=== PATIENT | male | born 1970 | race Caucasian/White ===

== ENCOUNTER 2016-10-07 07:59 | Day surgery (SDC) | payer OTHER ==
[~2016-10-07] VITALS: Ht 180.3 cm; Wt 100.9 kg
[~2016-10-07 07:59] MED LIST: CeFAZolin Inj 2 GM in IV Premix 1 EACH IV SCH
[2016-10-07] MEDS ORDERED: fentaNYL-PF 50 mCg/mL 2 mL Inj ONE (08:00)
[2016-10-07] MEDS ORDERED: Dexamethasone 4 mg/mL Inj ONE (08:00)
[2016-10-07] MEDS ORDERED: MetoCLOpramide 5 mg/mL 2 mL Inj ONE (08:00)
[2016-10-07] MEDS ORDERED: Ondansetron 2 mg/mL 2 mL Inj ONE (08:00)
[2016-10-07] MEDS ORDERED: Propofol 10,000 mCg/mL 20 mL Inj ONE (08:00)
[2016-10-07] MEDS: Lactated Ringer's 1,000 ML IV SCH ×2 (08:06→09:49)
[2016-10-07] MEDS ORDERED: IBUP200C PO (08:13)
[2016-10-07 08:32] VITALS: BP 115/59; PULSE 54; RESP 18; O2SAT 98
[2016-10-07] MEDS ORDERED: Bupivacaine-MPF 0.5% W/EPI 30 mL Inj INFILTRATE ONE (10:17)
[2016-10-07] MEDS ORDERED: Lactated Ringer's 1,000 ML IV SCH (10:19)
[2016-10-07] MEDS ORDERED: Lactated Ringer's 500 ML IV PRN (10:19)
[2016-10-07] MEDS ORDERED: Phenylephrine 10,000 mCg/mL Inj IVPUSH PRN (10:20)
[2016-10-07] MEDS ORDERED: Ondansetron 2 mg/mL 2 mL Inj IVPUSH PRN (10:20)
[2016-10-07] MEDS ORDERED: HYDROmorphone 1 mg/mL Inj IVPUSH PRN (10:20)
[2016-10-07] MEDS ORDERED: fentaNYL-PF 50 mCg/mL 2 mL Inj IVPUSH PRN (10:20)
[2016-10-07] MEDS ORDERED: EPHEDrine Sulfate 50 mg/mL Inj IVPUSH PRN (10:20)
[2016-10-07] MEDS ORDERED: Dexamethasone 4 mg/mL Inj IVPUSH PRN (10:20)
[2016-10-07] MEDS ORDERED: MetoCLOpramide 5 mg/mL 2 mL Inj IVPUSH PRN (10:20)
--- NOTE | 2016-10-07 10:38 | PCM.DISURG ---
Surgical Discharge Instruction Date of Service Oct 07, 2016 Dates of Hospitalization Date of Hospital Admission Providers Admitting Physician: Primary Care Physician: Gavino Fried MD Attending Physician: Gaudencio Owen MD Discharge Diagnosis Discharge Diagnosis Multiple right arm lipomas Diet Discharge Diet: No restrictions Activity Discharge Activity-General: No restrictions Dressing and Incisional Care Dressing Instructions: Dermabond will peel off gradually Hygiene: May shower Follow Up Plan Follow Up Plan With Dr. Owen in 3 weeks Call your provider for: Fever (over 101.5), Discharge @ incision, pus discharge Gaudencio Owen MD Oct 07, 2016 10:38
[2016-10-07] MEDS ORDERED: oxyCODONE-Acetamin 5-325 mg Tablet PO PRN (10:40)
--- NOTE | 2016-10-07 10:44 | PCM.SURGOP ---
Surgical Operative Report Date of Service: Oct 07, 2016 Pre Operative Diagnosis Multiple right arm lipomas Post Operative Diagnosis Same Procedure: Excision of right arm lipomas 3, 1.1-2.0 cm Surgeon and [employer] Supervisor: Surgeon: Gaudencio Owen MD Assistants: Romana Helton PA-C; David Celestin MS3 Indication for Procedure 46-year-old man who has a history of multiple prior soft tissue lipomas. Some of them have been excised in the operating room, and some of them have been excised in the office. Several of them have been stable in size on his upper right arm, but one was increasing in size, and becoming more tender. He wished to have them excised. After discussion of risks and benefits, he agreed to proceed with excision. Findings: All 3 soft tissue masses were grossly consistent with lipomas. The most posterior lesion measured 1.5 x 1.3 x 0.7 cm. The middle lesion measured 1.5 x 1.2 x 0.5 cm. The most anterior lesion measured 1.3 x 1.0 x 0.6 cm. Procedure Details The palpable soft tissue masses were marked with confirmation from the patient in the preoperative area. After smooth induction of general anesthesia, he was placed in the supine position with the right arm externally rotated and above his head. He was prepped and draped in wide sterile fashion. A procedural pause was performed according to the SCOAP checklist, and all were found to be in agreement. Each lesion was excised using a separate longitudinal incision. The skin was anesthetized with half percent Marcaine with epinephrine. A longitudinal incision was made over the posterior lesion. Skin flaps were raised. There was a firm subcutaneous mass, which was a discrete encapsulated lipoma grossly. This was dissected free from the surrounding subcutaneous tissue. Ex vivo, it measured 1.5 x 1.3 x 0.7 cm. A longitudinal incision was made over the middle lesion. Skin flaps were raised. There was a well encapsulated lipoma grossly, which was dissected free from the surrounding subcutaneous tissue. Ex vivo, the lesion measured 1.5 x 1.2 x 0.5 cm. A longitudinal incision was made over the third lesion, most anterior. Skin flaps were raised. There was a well encapsulated lipoma, which was dissected free from the surrounding subcutaneous tissue. Ex vivo, the lesion measured 1.3 x 1.0 x 0.6 cm. Since all 3 lesions looked grossly consistent with well encapsulated lipomas, they were sent together in one jar for permanent pathology, labeled as right arm lipomas. Hemostasis was adequate. The incisions were closed using running 4-0 Monocryl subcuticular stitches. Dermabond was applied to the skin as a dressing. At the end of the case all needle and sponge counts were correct 2. The patient was awakened from anesthesia without difficulty, and taken to the recovery room in satisfactory condition, having tolerated the procedure well. Complications There were no periprocedural complications identified. Surgical Specimen Removed: Yes Specimen sent to Pathology: Yes Surgical Specimen description: Right arm lipomas. Anesthetic Plan: GA Grafts, Implants: None Output, Estimated Blood Loss: 10 Blood Administration during donnelly: No Drains: None Catheters: None copies to: Yohan Lehman MD, Joshua D MD Oct 07, 2016 10:44
[2016-10-07 10:52] VITALS: BP 121/64; PULSE 61; RESP 13; O2SAT 93
--- NOTE | 2016-10-07 10:54 | PCM.HPANE ---
Patient Data Surgeon Admitting Provider: Attending Provider:Gaudencio Owen MD Primary Care Physician:Gavino Fried MD Other Provider:Isamar Carcamoingham Anesthesia Reason for Visit Right Upper Arm Multiple Lipomas Ht/WT & BMI Height (Feet): 5 Height (Inches): 11 Weight (Kilograms): 102.05 Body Mass Index 31.00 Allergies Coded Allergies: No Known Allergies (Unverified , 10/06/16) Past Anesthesia History Anesthesia History: Denies:: Abnormal Airway, Anesthesia Reactions, Difficult Intubation, Fam Anesthesia Reaction Diabetes History Hx Diabetes?: No MRSA MRSA: No Medications Hypertension Medication: No Home Meds Incl Beta Shelbi: No Reported Medications Ibuprofen 200 Mg [id number] Mg PO QID PRN For Pain Ref 0 10/07/16 History HEENT History: Denies:: Abnormal Airway Cataracts Difficult Intubation Dysphagia Glaucoma Hearing Problem Sinus Problem TMJ Cardiovascular History: Denies:: AICD Abdominal Aortic Aneurism Cardiac Surgery Edema Heart Murmur Hypertension Irregular Heartbeat Pacemaker Hx of Respiratory Problem?: No Respiratory History: Denies:: Asthma COPD Dyspnea Emphysema Oxygen Administration Pneumonia Tuberculosis Use of C-PAP Machine Use of Inhalers / NEBS Hx Neurologic Problems?: No Neurological History: Denies:: CVA Dementia Dizziness Headaches Multiple Sclerosis Parkinson's Disease Seizures TIA Hx of GI Problems?: Yes Gastrointestinal History: Positive for:: Gastroesphageal Reflux (treats with diet) Denies:: Cirrhosis Gall Bladder Disease Gastrointestinal Bleeding Heartburn Hepatitis Hiatal Hernia Rectal Bleeding Hx of Problems?: No Genitourinary History: Denies:: Kidney Stones Urinary Tract Infection Male Hx: Denies:: Prostate Problems Scrotal Mass Testicular Surgery Skin History: Positive for:: History Skin Disorders? (right upper arm lipoma current admission problem) Hx Musculoskeletal Problems?: No Musculoskeletal History: Denies:: Back Injury Fibromyalgia Joint Replacement Musculoskeletal Trauma Myasthenia Gravis Osteoarthritis Rheumatoid Arthritis Systemic Lupus Hx of Psycho/Social Problems?: No Psycho Social History: Denies:: Anxiety Hx Depression Hx Surgeries?: Yes (lipoma right flank, left arm lipoma, knee scope, CTR) Hx Any Other Health Problems?: Yes Other History: Denies:: Cancer Thyroid Disease History Blood Transfusions: Positive for:: Accept Blood Products? Denies:: Blood Transfusions Hx Diabetes: No Hx Alcohol Use: YesAlcoholic Drinks Per Day: 3 drinks weeklyHx Substance Use: No Stop/Bang S-Snoring: Do You Snore Loudly: No T-Tired: feel tired, fatigued: No O-Obsered: Observed not breath: No P-Blood Pressure: treated: No B- Body Mass Index > 35 kg/m2: No A- Age over 50: No N- Neck Large Circumference: No G- Gender Male: Yes VASYL Total Score: 1 Risk Assessment Category Category 1A: Patient has history of documented sleep apnea, and HAS NOT received any narcotic, sedative or anesthesia administration during this stay. Category 1B: Patient has history of documented sleep apnea, and HAS received any narcotic , sedative or anesthesia administration during this stay Category 2: Patient has SUSPECTED Obstructive Sleep Apnea, and HAS received any narcotic , sedative or anesthesia administration during this stay. Category 3: Patient has SUSPECTED Obstructive Sleep Apnea and HAS NOT received narcotic, sedative or anesthesia administration during this stay. Category 4: Outpatient in Procedural Areas with known sleep apnea or who screen positive for High Risk via the STOP/BANG questionnaire. Exam Exam General Appearance: Alert, Oriented X3, Cooperative, No Acute Distress HEENT/AIRWAY: MP 2 Lungs: Clear to Auscultation Heart: Exam Unremarkable Plan Impression Patient chart reviewed, patient interviewed and anesthestic plan with risks, benefits, and alternatives discussed, and informed consent obtained. ASA Physical Status: ASA2 Mod Systemic Disease Anesthetic Plan: GA Bene/Risks/Altern/Consents: Yes HP Complete Prior to Induction: Yes Daquan Jara MD Oct 07, 2016 07:46
--- NOTE | 2016-10-07 10:54 | PCM.ANEP1 ---
Post Anesthesia Phase 1 PACU Phase 1 Assessment Date of Service: Oct 07, 2016 Vital Signs Vital Signs Date Time Temp Pulse Resp B/P Pulse Ox O2 Delivery O2 Flow Rate FiO2 10/07/16 08:32 35.7 54 18 115/59 98 Room Air Anesthetic Administered: GA Level of Alertness: Awake, talking GARCIA's with Equal Strength: Yes Pain: No Nausea or Vomiting: No Oxygen Delivery: Room Air Lungs: Clear to Auscultation Dermatome Level: Full Sensation Daquan Jara MD Oct 07, 2016 10:54
[2016-10-07 11:00] VITALS: BP 110/68; PULSE 60; RESP 12; O2SAT 92
[2016-10-07 11:05] VITALS: BP 106/78; PULSE 60; RESP 13; O2SAT 93
[2016-10-07 11:17] VITALS: BP 107/62; PULSE 63; RESP 18; O2SAT 95
[2016-10-07 11:34] VITALS: BP 124/55; PULSE 69; RESP 17; O2SAT 96
--- NOTE | 2016-10-07 11:38 | PCM.ANEP2 ---
Post Anesthesia Evaluation ASA/CMS Post Anesthesia VS in Patient's Normal Range?: Yes Resp Stable; Airway Patent?: Yes CV Function & Hydration Stable: Yes Mental Status Recovered?: Yes Pain control Satisfactory?: Yes N/V Control Satisfactory?: Yes Daquan Jara MD Oct 07, 2016 11:38
--- NOTE | 2016-10-09 11:40 | PATH ---
SURGICAL PATHOLOGY Attending Physician:Danilo Bautista CASE STATUS: Signed Out PATIENT NAME: RISHABH GARCIA PID: [id number] : 1970 DATE COLLECTED:10/07/2016 20:31 SPECIMEN: Soft Tissue, Lipoma CLINICAL HISTORY: RIGHT ARM LIPOMAS 1). RIGHT ARM LIPOMAS FINAL DIAGNOSIS: Right Arm Lipomas: Lipomas, three. ICD10 D17.9 GROSS DESCRIPTION: The specimen is received in one formalin filled container labeled with the patient's name, sublabeled "right arm lipomas" and consists of 3 light yellow-bennett portions of soft tissue which aggregate to 2.5 x 1.7 x 1.0 CM. The specimen is inked blue. 3 labor representative sections are submitted in one cassette. 10/07/2016 [facility] MICRO DESCRIPTION: Please see diagnosis. ICD-9 CODES: CPT CODES: 1: 07161 Electronically Signed Out Karen Jackson MD [facility] [address], [place] [address] Technical component performed at [facility], [facility] [address], [place], [address]
== END 2016-10-07 23:59 | disposition home or self-care (01) ==
LOC: SAS 07:59
PROVIDERS: ATTEND Student in an Organized Health Care Education/Training Program
PROC: 0HBBXZZ Excision of Right Upper Arm Skin, External Approach (ICD-10-PCS; principal; 2016-10-07 10:00)
DX: D17.21 Benign lipomatous neoplasm of skin and subcutaneous tissue of right arm (principal); K21.9 Gastro-esophageal reflux disease without esophagitis
CPT/HCPCS: 11403; J0690; J1100; J2250; J2405; J2765; J7120

== ENCOUNTER 2017-01-29 06:25 | Day surgery (SDC) | payer OTHER ==
[2017-01-29] VITALS (7 sets, daily range): BP systolic 98–119; BP diastolic 52–72; PULSE 58–75; RESP 9–18; O2SAT 93–98
[~2017-01-29] VITALS: Ht 177.8 cm; Wt 98.1 kg
[2017-01-29] MEDS ORDERED: fentaNYL-PF 50 mCg/mL 2 mL Inj ONE (06:26)
[2017-01-29] MEDS ORDERED: Dexamethasone 4 mg/mL Inj ONE (06:26)
[2017-01-29] MEDS ORDERED: Propofol 10,000 mCg/mL 20 mL Inj ONE (06:26)
[2017-01-29] MEDS: Lactated Ringer's 1,000 ML IV SCH ×2 (06:34→08:17)
--- NOTE | 2017-01-29 08:15 | PCM.HPANE ---
Patient Data Surgeon Admitting Provider: Attending Provider:Ruel Weston DO Primary Care Physician:Gavino Fried MD Other Provider:Daryn Carcamo Anesthesia Reason for Visit Left Carpal Tunnel Syndrome Ht/WT & BMI Height (Feet): 5 Height (Inches): 10 Weight (Kilograms): 98.1 Body Mass Index 30.00 Allergies Coded Allergies: No Known Allergies (Unverified , 10/06/16) Past Anesthesia History Anesthesia History: Denies:: Abnormal Airway, Anesthesia Reactions, Difficult Intubation, Fam Anesthesia Reaction Diabetes History Hx Diabetes?: No MRSA MRSA: No Medications Home Meds Incl Beta Shelbi: No Discontinued Reported Medications Ibuprofen 200 Mg [id number] Mg PO QID PRN For Pain Ref 0 10/07/16 History History of ENT Problems?: No HEENT History: Denies:: Abnormal Airway Cataracts Difficult Intubation Dysphagia Hearing Problem Sinus Problem TMJ Denture Type: None Teeth Condition: Within Normal Limits Hx of Heart Problems?: No Cardiovascular History: Denies:: AICD Abdominal Aortic Aneurism Cardiac Surgery Edema Heart Murmur Hypertension Irregular Heartbeat Pacemaker Hx of Respiratory Problem?: No Respiratory History: Denies:: Asthma COPD Dyspnea Emphysema Oxygen Administration Pneumonia Tuberculosis Use of C-PAP Machine Hx Neurologic Problems?: No Neurological History: Denies:: CVA Dementia Dizziness Headaches Multiple Sclerosis Parkinson's Disease Seizures Hx of GI Problems?: Yes Hx of Problems?: No Genitourinary History: Denies:: Kidney Stones Urinary Tract Infection Male Hx: Denies:: Prostate Problems Scrotal Mass Testicular Surgery Skin History: Positive for:: History Skin Disorders? (hx of multiple lipomas) Hx Musculoskeletal Problems?: Yes Musculoskeletal History: Positive for:: Musculoskeletal Trauma (left carpal tunnel current admission problem) Denies:: Back Injury Joint Replacement Systemic Lupus Hx of Psycho/Social Problems?: No Psycho Social History: Denies:: Anxiety Hx Depression Hx Surgeries?: Yes (lipoma right flank, left arm lipoma, knee scope, CTR) Hx Any Other Health Problems?: Yes Other History: Denies:: Cancer Thyroid Disease History Blood Transfusions: Denies:: Blood Transfusions Hx Diabetes: No Hx Alcohol Use: YesHx Substance Use: No Smoking Status: Never Smoker Stop/Bang S-Snoring: Do You Snore Loudly: No T-Tired: feel tired, fatigued: Yes O-Obsered: Observed not breath: No P-Blood Pressure: treated: No B- Body Mass Index > 35 kg/m2: No A- Age over 50: No N- Neck Large Circumference: No G- Gender Male: Yes VASYL Total Score: 2 VASYL Risk Assessment: Low Risk, <3 Yes Risk Assessment Category Category 1A: Patient has history of documented sleep apnea, and HAS NOT received any narcotic, sedative or anesthesia administration during this stay. Category 1B: Patient has history of documented sleep apnea, and HAS received any narcotic , sedative or anesthesia administration during this stay Category 2: Patient has SUSPECTED Obstructive Sleep Apnea, and HAS received any narcotic , sedative or anesthesia administration during this stay. Category 3: Patient has SUSPECTED Obstructive Sleep Apnea and HAS NOT received narcotic, sedative or anesthesia administration during this stay. Category 4: Outpatient in Procedural Areas with known sleep apnea or who screen positive for High Risk via the STOP/BANG questionnaire. Exam Exam Vital Signs Vital Signs Date Time Temp Pulse Resp B/P Pulse Ox O2 Delivery O2 Flow Rate FiO2 01/29/17 06:46 36 66 18 111/66 97 Room Air General Appearance: Alert, Oriented X3, Cooperative, No Acute Distress HEENT/AIRWAY: MP 2 Lungs: Clear to Auscultation, Normal Air Movement Heart: Exam Unremarkable, Regular Rate/Rhythm, No Murmurs/Rubs/Gallops Meds/Labs/Diagnostics Admission Meds Current Medications Lactated Ringer's (Lr) 1,000 ml @ 120 mls/hr [id number] IV Last administered on t 06:34; Start 01/29/17 at 05:00; Stop 01/29/17 at 13:19 Plan Impression Patient chart reviewed, patient interviewed and anesthestic plan with risks, benefits, and alternatives discussed, and informed consent obtained. NPO per Anesth. Guidelines: Yes ASA Physical Status: ASA2 Mod Systemic Disease Anesthetic Plan: GA Bene/Risks/Altern/Consents: Yes HP Complete Prior to Induction: Yes Salo Pino MD January 29, 2017 08:15
[2017-01-29] MEDS ORDERED: Lidocaine 1%-Epi 1:100,000 20 mL Inj INJ ONE (08:22)
[2017-01-29] MEDS ORDERED: HYDROcodone-APAP 5-325 mg Tablet PO PRN (08:25)
[2017-01-29] MEDS ORDERED: Lactated Ringer's 1,000 ML IV SCH (08:33)
[2017-01-29] MEDS ORDERED: Lactated Ringer's 500 ML IV PRN (08:33)
[2017-01-29] MEDS ORDERED: EPHEDrine Sulfate 50 mg/mL Inj IVPUSH PRN (08:35)
[2017-01-29] MEDS ORDERED: MetoCLOpramide 5 mg/mL 2 mL Inj IVPUSH PRN (08:35)
[2017-01-29] MEDS ORDERED: fentaNYL-PF 50 mCg/mL 2 mL Inj IVPUSH PRN (08:35)
[2017-01-29] MEDS ORDERED: HYDROmorphone 1 mg/mL Inj IVPUSH PRN (08:35)
[2017-01-29] MEDS ORDERED: Phenylephrine 10,000 mCg/mL Inj IVPUSH PRN (08:35)
[2017-01-29] MEDS ORDERED: Labetalol 5 mg/mL 4 mL Inj IV PRN (08:35)
[2017-01-29] MEDS ORDERED: Atropine 0.4 mg/mL Inj IVPUSH PRN (08:35)
[2017-01-29] MEDS ORDERED: Dexamethasone 4 mg/mL Inj IVPUSH PRN (08:35)
[2017-01-29] MEDS ORDERED: Ondansetron 2 mg/mL 2 mL Inj IVPUSH PRN (08:35)
--- NOTE | 2017-01-29 09:03 | PCM.ANEP1 ---
Post Anesthesia PACU Phase 1 Assessment Vital Signs Vital Signs Date Time Temp Pulse Resp B/P Pulse Ox O2 Delivery O2 Flow Rate FiO2 01/29/17 08:55 75 11 101/56 96 Nasal Cannula 2 01/29/17 08:50 36.2 71 9 98/52 95 Room Air 01/29/17 06:46 36 66 18 111/66 97 Room Air Anesthetic Administered: GA Level of Alertness: Awake, talking GARCIA's with Equal Strength: Yes Pain: No Nausea or Vomiting: No CV Function and Hydration: Yes Airway Device: Oralpharangeal Airway Oxygen Delivery: Room Air Lungs: Clear to Auscultation, Normal Air Movement Dermatome Level: Full Sensation PACU Phase 2 Assessment Complications: No Follow up Care: No Patient Instructions Provided: Yes Salo Pino MD January 29, 2017 09:03
--- NOTE | 2017-01-29 23:50 | OP ---
[address] [address] OPERATIVE REPORT PATIENT: RISHABH GARCIA : 1970 MR#: [id number] ADMIT: 01/29/2017 JOB ID: [id number] DATE OF SURGERY: 01/29/2017 PREOPERATIVE DIAGNOSIS(ES): Left carpal tunnel syndrome. POSTOPERATIVE DIAGNOSIS(ES): Left carpal tunnel syndrome. PROCEDURE: Left open carpal tunnel release. SURGEON: Ruel Weston DO ANESTHESIA: General. HISTORY: The patient is a pleasant 46-year-old male with longstanding history of left hand pain and paresthesias. He was diagnosed with carpal tunnel syndrome and started with nighttime wrist brace and he failed conservative treatment with electrodiagnostic findings of carpal tunnel syndrome. I gave the patient the option to proceed with a left open carpal tunnel release. He understood the risks include, but are not limited to, neurovascular injury, tendon injury, infection, failure of fixation, stiffness, persistent pain, all of which may require further intervention. The patient had all questions answered. Consent was signed and placed in the chart. PROCEDURE IN DETAIL: The patient was brought to the operative suite and placed supine on the operating table. Surgical time-out was performed. After appropriate anesthesia was obtained, a left upper arm tourniquet was applied, and the left upper extremity was prepped and draped in a sterile fashion. Left upper extremity was then exsanguinated and tourniquet inflated to 250 mmHg. A standard 2 cm longitudinal incision was made in line with the radial aspect of the ring finger and ulnar aspect of the palmaris longus. The incision was kept distal to the wrist crease and proximal to Clifford's cardinal line. Subcutaneous tissues were dissected with bipolar electrocautery utilized to maintain hemostasis throughout the procedure. The palmar fascia was first identified and incised longitudinally in line with the skin incision followed by exposure of the underlying transverse carpal ligament. The transverse carpal ligament was then released in its entirety to include the distal septal antebrachial fascia. Copious irrigation was then performed followed by closure of skin with 5-0 nylon in simple interrupted fashion. The patient was then placed in a bulky soft dressing. ESTIMATED BLOOD LOSS: Less than 1 cc. COMPLICATIONS: None. DISPOSITION: The patient tolerated the procedure well. Anesthesia was reversed. The patient was transferred back to recovery. POSTOPERATIVE PLAN: The patient will follow up in the office in two weeks. We will remove the patient's sutures at that time and have him start working on range of motion and scar mobilization.
== END 2017-01-29 23:59 | disposition home or self-care (01) ==
LOC: SAS 06:25
PROVIDERS: ATTEND Orthopaedic Surgery
PROC: 01N50ZZ Release Median Nerve, Open Approach (ICD-10-PCS; principal; 2017-01-29 08:15)
DX: G56.02 Carpal tunnel syndrome, left upper limb (principal); Z87.891 Personal history of nicotine dependence
CPT/HCPCS: 64721; J1100; J2250; J3010; J7120